=== PATIENT | male | born 1990 | race Caucasian/White ===

== ENCOUNTER 2020-02-14 17:52 | Emergency (ER) | payer SELFPAY ==
[~2020-02-14] VITALS: Ht 170.2 cm; Wt 71.0 kg
--- NOTE | 2020-02-14 18:14 | PHYS DOC ---
Adult General Chief Complaint Chief Complaint: PSYCH EVALUATION HPI HPI Patient is a 29-year-old male patient presented to the ED today for psychiatric evaluation. Patient states he needs to be back on his medicines for schizophrenia and bipolar. Denies any suicidal or homicidal ideations. (KODY SALINAS APRN) Review of Systems Review of Systems Constitutional: Denies fever or chills [] Eyes: Denies change in visual acuity, redness, or eye pain [] HENT: Denies nasal congestion or sore throat [] Respiratory: Denies cough or shortness of breath [] Cardiovascular: No additional information not addressed in HPI [] GI: Denies abdominal pain, nausea, vomiting, bloody stools or diarrhea [] : Denies dysuria or hematuria [] Musculoskeletal: Denies back pain or joint pain [] Integument: Denies rash or skin lesions [] Neurologic: Denies headache, focal weakness or sensory changes [] Psych: Psychiatrist evaluation All other systems were reviewed and found to be within normal limits, except as documented in this note. (KODY SALINAS APRN) Allergies Allergies Allergies Coded Allergies Type Severity Reaction Last Updated Verified Sulfa (Sulfonamide Antibiotics) Allergy Unknown 02/14/20 Yes (KODY SALINAS APRN) Physical Exam Physical Exam Constitutional: Well developed, well nourished, no acute distress, non-toxic appearance. [] HENT: Normocephalic, atraumatic, bilateral external ears normal, oropharynx moist, no oral exudates, nose normal. [] Eyes: PERRLA, EOMI, conjunctiva normal, no discharge. [] Neck: Normal range of motion, no tenderness, supple, no stridor. [] Cardiovascular:Heart rate regular rhythm, no murmur [] Lungs & Thorax: Bilateral breath sounds clear to auscultation [] Abdomen: Bowel sounds normal, soft, no tenderness, no masses, no pulsatile masses. [] Skin: Warm, dry, no erythema, no rash. [] Back: No tenderness, no CVA tenderness. [] Extremities: No tenderness, no cyanosis, no clubbing, ROM intact, no edema. [] Neurologic: Alert and oriented X 3, normal motor function, normal sensory function, no focal deficits noted. [] Psychologic: flat affect (KODY SALINAS APRN) EKG EKG [] (KDOY SALINAS APRN) EKG Sinus rhythm at 76 bpm, no axis deviation, normal intervals, normal QRS interval, T wave inversion V1, V2 and V3, no ST elevations or ST depressions, no Q waves (JACEK TELLO DO) Radiology/Procedures Radiology/Procedures [] (KODY SALINAS APRN) Heart Score Risk Factors: Risk Factors: DM, Current or recent (<one month) smoker, HTN, HLP, family history of CAD, obesity. Risk Scores: Risk Factors: DM, Current or recent (<one month) smoker, HTN, HLP, family history of CAD, obesity. (KODY SALINAS APRN) Course & Med Decision Making Course & Med Decision Making Pertinent Labs and Imaging studies reviewed. (See chart for details) This is a 29-year-old male patient presented to the ED today for psychiatric evaluation he is requesting to be put on his medicines for bipolar and schizophrenia. He is homeless. K 3.2 given oral K replacement. Urine positive for UTI-given rocephin, azithromycin and urine sent for STD. Waiting for psych evaluation. [address] Tello (KODY SALINAS APRN) Course & Med Decision Making I received sign out at shift change. Patient initially reported no suicidal or homicidal ideations. Upon psych assessment reports he took multiple medications in an attempt to overdose 2 days ago. Labs/ua reviewed-normal LFTs, negative drug screen, Tylenol, salicylates or alcohol. EKG with normal intervals. Pt is pending placement for psych. Fire alarm went on in ed building and pt was seen by staff running out of ambulance bay-code renae briefly initiated. Pt quickly returned in ed within 1 minute of eloping. Pt was medicated for his safety and psych transfer. Pt pending transfer for involuntary SI at [place]. (JACEK TELLO DO) Dragon Disclaimer Dragon Disclaimer This electronic medical record was generated, in whole or in part, using a voice recognition dictation system. (KODY SALINAS APRN) Departure Departure: Impression: Primary Impression: UTI (urinary tract infection) Additional Impressions: Suicidal behavior with attempted self-injury Agitation requiring sedation protocol Disposition: 66 DC/TRF TO PSYCH HOSP ([facility]) Condition: STABLE Referrals: PCP,NO (PCP) FOLLOW UP WITH FAMILY MEDICINE: [facility] [address] [address] [place] [place] Cefpodoxime Proxetil (CEFPODOXIME PROXETIL) 200 Mg Tablet 1 TAB PO BID for uti for 14 Days, #28 TAB Prov: JACEK TELLO DO 02/14/20 Problem Qualifiers KODY SALINAS APRN Feb 14, 2020 18:14 JACEK TELLO DO Feb 14, 2020 21:48
[2020-02-14 18:46] LABS: BASO # 0.1 x10^3/uL (0.0-0.2); BASO % 1 % (0-3); EOS # 0.2 x10^3/uL (0.0-0.7); EOS % 3 % (0-3); HEMATOCRIT 46.7 % (39.0-53.0); HEMOGLOBIN 15.8 g/dL (13.0-17.5); LYMPH # 1.4 x10^3/uL (1.0-4.8); LYMPH % 21 % (24-48); MEAN CORPUSCULAR HEMOGLOBIN 31 pg (25-35); MEAN CORPUSCULAR HGB CONC 34 g/dL (31-37); MEAN CORPUSCULAR VOLUME 91 fL (79-100); MONO # 0.6 x10^3/uL (0.0-1.1); MONO % 8 % (0-9); NEUT # 4.8 x10^3uL (1.8-7.7); NEUT % 67 % (31-73); PLATELET COUNT 239 x10^3/uL (140-400); RED BLOOD COUNT 5.11 x10^6/uL (4.30-5.70); RED CELL DISTRIBUTION WIDTH 13.4 % (11.5-14.5); WHITE BLOOD COUNT 7.1 x10^3/uL (4.0-11.0)
[2020-02-14 19:02] LABS: CALCIUM 9.6 mg/dL (8.5-10.1); POTASSIUM 3.2 mmol/L (3.5-5.1)
[2020-02-14 19:03] LABS: AMPHETAMINE/METHAMPHETAMINE NEG (NEG); BARBITURATES NEG (NEG); BENZODIAZEPINES NEG (NEG); CANNABINOIDS NEG (NEG); COCAINE NEG (NEG); METHADONE NEG (NEG); OPIATES NEG (NEG); PHENCYCLIDINE NEG (NEG)
[2020-02-14 19:03] LABS: ACETAMIN < 2.0 mcg/mL (10-30)
[2020-02-14 19:04] LABS: ETHANOL < 10 mg/dL (0-10)
[2020-02-14 19:07] LABS: ALBUMIN 4.5 g/dL (3.4-5.0); ALBUMIN/GLOBULIN RATIO 1.3 (1.0-1.7); MAGNESIUM 2.3 mg/dL (1.8-2.4); TOTAL BILIRUBIN 1.1 mg/dL (0.2-1.0)
[2020-02-14 19:21] LABS: BACTERIA,URINE 0 /HPF (0-FEW); BILIRUBIN,URINE NEG (NEG); CLARITY,URINE HAZY; COLOR,URINE YELLOW; GLUCOSE,URINE NEG (NEG); NITRITE,URINE POS (NEG); SQUAMOUS EPITHELIAL CELL,UR MOD /LPF
[2020-02-14] MEDS ORDERED: cefTRIAXone IM 250 MG VIAL IM ONE (21:00)
[2020-02-14] MEDS ORDERED: POTASSIUM CHLORIDE 20 MEQ TABLET.ER. PO ONE (21:00)
[2020-02-14] MEDS ORDERED: AZITHROMYCIN 250 MG TABLET. PO ONE (21:00)
[2020-02-14] MEDS ORDERED: CEFP200T PO (21:52)
[2020-02-14] MEDS ORDERED: diphenhydrAMINE 50 MG/ML VIAL ONE (22:06)
[2020-02-14] MEDS ORDERED: HALOPERIDOL LACT 5 MG/ML VIAL. ONE (22:07)
[2020-02-14] MEDS ORDERED: HALOPERIDOL LACT 5 MG/ML VIAL. IVP ONE ×2 (22:15→22:45)
[2020-02-14] MEDS ORDERED: diphenhydrAMINE 50 MG/ML VIAL IVP ONE (22:45)
[2020-02-14] MEDS ORDERED: MIDAZOLAM HCL PF 5 MG/5 ML VIAL. IV ONE (23:15)
--- NOTE | 2020-02-15 08:04 | EKG ---
[address] [address] Test Date: 2020-02-14 Test Time: 21:38:00 Pat Name: ANGELO PALAFOX Department: Room: Gender: M Job Foreman: : 1990 Requested By: JACEK TELLO Order Number: [id number] Reading MD: Measurements Intervals [place] Rate: 76 P: 90 WI: 146 QRS: 79 QRSD: 94 T: 27 QT: 390 QTc: 438 Interpretive Statements SINUS RHYTHM NORMAL ECG RI6.02 No previous ECG available for comparison
[2020-02-15] MEDS: CEFDINIR 300 MG CAPSULE PO SCH ×2 (18:55→20:57)
[2020-02-16] MEDS ORDERED: HALOPERIDOL LACT 5 MG/ML VIAL. IVP ONE (02:30)
[2020-02-16 07:12] VITALS: BP 136/87
[2020-02-16] MEDS ORDERED: CEFDINIR 300 MG CAPSULE PO ONE (09:00)
[2020-02-16] MEDS: CEFDINIR 300 MG CAPSULE PO SCH (09:08)
== END 2020-02-16 09:50 ==
LOC: ER 17:52
DX: N39.0 Urinary tract infection, site not specified (principal); R45.851 Suicidal ideations; R45.1 Restlessness and agitation; F31.9 Bipolar disorder, unspecified; F20.9 Schizophrenia, unspecified; Z88.2 Allergy status to sulfonamides
CPT/HCPCS: 36415; 80053; 80307; 80329; 81001; 83735; 85025; 87077; 87086; 87491; 87591; 93005; 96372; 96374; 96375; 96376; 99285; G0480; J0456; J0696; J1200; J1630; J2250